=== PATIENT | female | born 1975 | race African-American/Black ===

== ENCOUNTER 2021-09-16 16:57 | Emergency (ER) | payer MEDICAID ==
[~2021-09-16] VITALS: Ht 165.1 cm; Wt 77.1 kg
--- NOTE | 2021-09-16 17:00 | NUR ---
RODY c/o bilateral upper/lower extremities swelling x 5 days, just came back yesterday from [facility]. AMBULATORY, PLACED ON BED, AAOX4.
--- NOTE | 2021-09-16 17:25 | NUR ---
URINE SAMPLE SENT TO LAB
[2021-09-16] MEDS ORDERED: ONDANSETRON HCL/PF 4 MG/2 ML VIAL IVP ONE (17:30)
[2021-09-16] MEDS ORDERED: IV NS 0.9% 1,000 ML BAG IV ONE (17:30)
--- NOTE | 2021-09-16 17:45 | NUR ---
BLOOD DRAWN, SWAB FOR COVID19 SENT TO LAB
--- NOTE | 2021-09-16 17:46 | NUR ---
SWAB FOR RAPID INFLUENSA SENT TO LAB
[2021-09-16] MEDS ORDERED: ONDANSETRON HCL/PF 4 MG/2 ML VIAL ONE (17:54)
[2021-09-16 18:06] LABS: BASOPHILS % (AUTO) 0.2 % (0.0-2.0); EOSINOPHILS % (AUTO) 1.5 % (0.0-6.0); HEMATOCRIT 38 % (33-45); LYMPHOCYTES # (AUTO) 0.3 K/uL (0.8-4.8); LYMPHOCYTES % (AUTO) 5.9 % (20.0-44.0); MEAN CORPUSCULAR HGB CONC 34 g/dl (31.0-36.0); MEAN CORPUSCULAR VOLUME 91 fL (82-100); MONOCYTES # (AUTO) 0.5 K/uL (0.1-1.30); MONOCYTES % (AUTO) 9.6 % (2.0-12.0); NEUTROPHILS % (AUTO) 82.8 % (43.0-81.0); PLATELET COUNT (AUTO) 274 K/uL (150-450); WHITE BLOOD COUNT (AUTO) 4.8 K/uL (4.3-11.0)
--- NOTE | 2021-09-16 18:11 | NUR ---
SWAB FOR NOVEL KOCH SENT TO LAB
[2021-09-16 18:32] LABS: BILIRUBIN,URINE NEGATIVE (NEGATIVE); COLOR,URINE YELLOW (YELLOW); LEUKOCYTE ESTERASE ,URINE NEGATIVE (NEGATIVE); NITRITE, URINE NEGATIVE (NEGATIVE); PROTEIN,URINE NEGATIVE (NEGATIVE); UGLUCOSE NEGATIVE (NEGATIVE); UROBILINOGEN,URINE 0.2 EU/dL (0.2)
[2021-09-16 18:35] LABS: ALANINE AMINOTRANSFERASE 39 U/L (12-78); ALBUMIN 3.7 g/dL (3.4-5.0); ALKALINE PHOSPHATASE 49 U/L (46-116); ASPARTATE AMINOTRANSFERASE 17 U/L (15-37); BILIRUBIN,DIRECT 0.1 mg/dL (0.0-0.2); BILIRUBIN,TOTAL 0.2 mg/dL (0.2-1.0); CALCIUM, SERUM 8.5 mg/dL (8.5-10.1); CARBON DIOXIDE 25 mmol/L (21-32); CHLORIDE 105 mmol/L (98-107); CREATININE 0.8 mg/dL (0.6-1.3); GLUCOSE 94 mg/dL (74-106); POTASSIUM 3.6 mmol/L (3.5-5.1); SODIUM SERUM 138 mmol/L (136-145); TOTAL PROTEIN, SERUM 7.4 g/dL (6.4-8.2); UREA NITROGEN, BLOOD 9 mg/dL (7-18)
--- NOTE | 2021-09-16 19:46 | NUR ---
IV removed. Catheter intact and site benign. Pressure and 4x4 applied to site. No bleeding noted.Patient discharged to home in stable condition. Written and verbal after care instructions given. Patient verbalizes understanding of instruction.
[2021-09-16 19:57] VITALS: BP 110/65
== END 2021-09-16 19:50 | disposition home or self-care (01) ==
LOC: ER 17:11
DX: U07.1 COVID-19 (principal); Z28.310 Unvaccinated for COVID-19; R10.12 Left upper quadrant pain
CPT/HCPCS: 36415; 71045; 80048; 80076; 81003; 83605; 84484; 85025; 85730; 87040 ×2; 87426; 87804; 93005; 96361; 96374; 99285; C9803; J2405; J7030; U0003

== ENCOUNTER → 2022-01-14 | Emergency (ER) | payer MEDICAID, OTHER ==
[~2022-01-14] VITALS: Ht 165.1 cm; Wt 76.2 kg
[~2022-01-14] MED LIST: FAMO-131 PO; FAMOTIDINE/PF INJ 20 MG/2 ML VIAL IV ONE; LIDOCAINE VISCOUS 2% UD 15 ML UDC ONE; MAG HYDROX/AL HYDROX/SIMETH 30 ML UDC ONE; ONDA4TAB5 PO; ONDANSETRON HCL/PF 4 MG/2 ML VIAL ONE
--- NOTE | 2022-01-14 13:29 | NUR ---
BIBS C/O DIZZINESS, PAIN UNDERNEATH HER L CHEST RADIATE TO BACK, DIFFICULT TO BREATH X 1 MONTH, AND THREW UP BLOOD YESTERDAY. PT CURRENTLY A&OX4, AMBULATORY.
--- NOTE | 2022-01-14 13:49 | NUR ---
IV ESTABLIHSED L HAND 20G. LABS DRAWN AND COLLECTED AT BEDSIDE.
[2022-01-14 14:07] LABS: BASOPHILS # (AUTO) 0.1 K/uL (0.0-0.2); BASOPHILS % (AUTO) 1.1 % (0.0-2.0); EOSINOPHILS % (AUTO) 3.8 % (0.0-6.0); HEMATOCRIT 41 % (33-45); HEMOGLOBIN 13.5 g/dL (11.5-14.8); LYMPHOCYTES # (AUTO) 1.9 K/uL (0.8-4.8); LYMPHOCYTES % (AUTO) 34.6 % (20.0-44.0); MEAN CORPUSCULAR HGB CONC 33 g/dl (31.0-36.0); MEAN CORPUSCULAR VOLUME 94 fL (82-100); MONOCYTES # (AUTO) 0.3 K/uL (0.1-1.30); MONOCYTES % (AUTO) 6.1 % (2.0-12.0); NEUTROPHILS # (AUTO) 2.9 K/uL (1.8-8.9); NEUTROPHILS % (AUTO) 54.4 % (43.0-81.0); PLATELET COUNT (AUTO) 286 K/uL (150-450); WHITE BLOOD COUNT (AUTO) 5.4 K/uL (4.3-11.0)
[2022-01-14] MEDS: ONDANSETRON HCL/PF 4 MG/2 ML VIAL IVP ONE (14:20)
[2022-01-14] MEDS: IV NS 0.9% 1,000 ML BAG IV ONE (14:20)
[2022-01-14] MEDS: FAMOTIDINE/PF INJ 20 MG/2 ML VIAL IV ONE (14:20)
[2022-01-14] MEDS: LIDOCAINE VISCOUS 2% UD 15 ML UDC MM ONE (14:20)
[2022-01-14] MEDS: MAG HYDROX/AL HYDROX/SIMETH 30 ML UDC PO ONE (14:20)
[2022-01-14 15:33] LABS: CALCIUM, SERUM 8.6 mg/dL (8.5-10.1); CARBON DIOXIDE 30 mmol/L (21-32); CHLORIDE 104 mmol/L (98-107); CREATININE 0.9 mg/dL (0.6-1.3); GLUCOSE 96 mg/dL (74-106); POTASSIUM 3.7 mmol/L (3.5-5.1); SODIUM SERUM 138 mmol/L (136-145); UREA NITROGEN, BLOOD 11 mg/dL (7-18)
[2022-01-14 15:39] LABS: ALANINE AMINOTRANSFERASE 70 U/L (12-78); ALBUMIN 3.5 g/dL (3.4-5.0); ALKALINE PHOSPHATASE 38 U/L (46-116); ASPARTATE AMINOTRANSFERASE 75 U/L (15-37); BILIRUBIN,DIRECT 0.1 mg/dL (0.0-0.2); BILIRUBIN,TOTAL 0.5 mg/dL (0.2-1.0); LIPASE 125 U/L (73-393); TOTAL PROTEIN, SERUM 6.7 g/dL (6.4-8.2)
[2022-01-14 17:02] VITALS: BP 120/74
== END | disposition home or self-care (01) ==
LOC: ER 13:09
DX: R10.9 Unspecified abdominal pain (principal); R14.0 Abdominal distension (gaseous); R11.2 Nausea with vomiting, unspecified
CPT/HCPCS: 99285; 96374; 71045; 96361; 96375; 93005; 85025; 80048; 83690; 80076; 36415; 84484; 82962; J3490; J2405; J7030

== ENCOUNTER 2022-05-27 07:36 | Emergency (ER) | payer OTHER ==
[~2022-05-27] VITALS: Ht 165.1 cm; Wt 74.4 kg
[~2022-05-27 07:36] MED LIST changes: -FAMOTIDINE/PF INJ 20 MG/2 ML VIAL IV ONE; -LIDOCAINE VISCOUS 2% UD 15 ML UDC ONE; -MAG HYDROX/AL HYDROX/SIMETH 30 ML UDC ONE; -ONDANSETRON HCL/PF 4 MG/2 ML VIAL ONE
--- NOTE | 2022-05-27 07:57 | NUR ---
tech at bed side for ekg
--- NOTE | 2022-05-27 08:10 | NUR ---
established iv line 20 g at left hand
--- NOTE | 2022-05-27 08:15 | NUR ---
blood sample obtained
[2022-05-27] MEDS ORDERED: LIDOCAINE VISCOUS 2% UD 15 ML UDC MM ONE (08:30)
[2022-05-27] MEDS ORDERED: MAG HYDROX/AL HYDROX/SIMETH 30 ML UDC ONE (08:30)
[2022-05-27] MEDS ORDERED: MAG HYDROX/AL HYDROX/SIMETH 30 ML UDC PO ONE (08:30)
[2022-05-27] MEDS ORDERED: LIDOCAINE VISCOUS 2% UD 15 ML UDC ONE (08:31)
--- NOTE | 2022-05-27 08:41 | NUR ---
urine sample obtained
[2022-05-27 08:46] LABS: BASOPHILS % (AUTO) 0.4 % (0.0-2.0); EOSINOPHILS % (AUTO) 3.3 % (0.0-6.0); HEMATOCRIT 38 % (33-45); HEMOGLOBIN 12.6 g/dL (11.5-14.8); LYMPHOCYTES # (AUTO) 1.4 K/uL (0.8-4.8); LYMPHOCYTES % (AUTO) 20.7 % (20.0-44.0); MEAN CORPUSCULAR HGB CONC 33 g/dl (31.0-36.0); MEAN CORPUSCULAR VOLUME 90 fL (82-100); MONOCYTES # (AUTO) 0.4 K/uL (0.1-1.30); MONOCYTES % (AUTO) 6.6 % (2.0-12.0); NEUTROPHILS # (AUTO) 4.6 K/uL (1.8-8.9); PLATELET COUNT (AUTO) 315 K/uL (150-450); RED BLOOD CELL COUNT(AUTO) 4.23 MIL/uL (4.0-5.2); WHITE BLOOD COUNT (AUTO) 6.7 K/uL (4.3-11.0)
[2022-05-27 09:13] LABS: COLOR,URINE OTHER (YELLOW)
[2022-05-27 09:14] LABS: BILIRUBIN,URINE NEGATIVE (NEGATIVE); UGLUCOSE NEGATIVE (NEGATIVE)
[2022-05-27 09:15] LABS: LEUKOCYTE ESTERASE ,URINE NEGATIVE (NEGATIVE); NITRITE, URINE NEGATIVE (NEGATIVE); PROTEIN,URINE NEGATIVE (NEGATIVE); UROBILINOGEN,URINE 0.2 EU/dL (0.2)
[2022-05-27 09:55] LABS: ALANINE AMINOTRANSFERASE 23 U/L (12-78); ALKALINE PHOSPHATASE 47 U/L (46-116); ASPARTATE AMINOTRANSFERASE 16 U/L (15-37); BILIRUBIN,DIRECT 0.1 mg/dL (0.0-0.2); BILIRUBIN,TOTAL 0.3 mg/dL (0.2-1.0); CALCIUM, SERUM 8.5 mg/dL (8.5-10.1); CARBON DIOXIDE 26 mmol/L (21-32); CHLORIDE 105 mmol/L (98-107); CREATININE 0.8 mg/dL (0.6-1.3); GLUCOSE 119 mg/dL (74-106); POTASSIUM 3.5 mmol/L (3.5-5.1); SODIUM SERUM 137 mmol/L (136-145); UREA NITROGEN, BLOOD 10 mg/dL (7-18)
[2022-05-27 09:56] LABS: ALBUMIN 3.4 g/dL (3.4-5.0); LIPASE 145 U/L (73-393); TOTAL PROTEIN, SERUM 6.9 g/dL (6.4-8.2)
[2022-05-27] MEDS ORDERED: PANT40TA49 PO (11:42)
--- NOTE | 2022-05-27 12:00 | NUR ---
Patient discharged to home in stable condition. Written and verbal after care instructions given. Patient verbalizes understanding of instruction.IV removed. Catheter intact and site benign. Pressure and 4x4 applied to site. No bleeding noted.
[2022-05-27 12:01] VITALS: BP 115/72
== END 2022-05-27 12:02 | disposition home or self-care (01) ==
LOC: ER 07:41
DX: R07.9 Chest pain, unspecified (principal); R10.9 Unspecified abdominal pain; Z79.899 Other long term (current) drug therapy
CPT/HCPCS: 99285; 71045; 93005 ×2; 85025; 80048; 83690; 80076; 84703; 81003; 36415; 84484 ×2; J7030